=== PATIENT | female | born 1965 | race Two or more races ===

== ENCOUNTER → 2017-04-16 | Outpatient (CLI) | payer OTHER, SELFPAY ==
--- NOTE | 2017-04-16 13:40 | REP ---
ABDOMINAL SERIES: Supine and erect views of the abdomen demonstrate no free air and no compelling evidence for small bowel obstruction. No dilated small bowel loops are seen. There appear to be a few phleboliths in the pelvis. There are mild degenerative changes of the spine. An accompanying view of the chest demonstrates no acute infiltrate. Heart is normal in size. The mediastinal silhouette is unremarkable. IMPRESSION: Negative abdominal series. Signed by Antoni Balderas MD 04/16/2017 05:18 P
== END ==
LOC: M LRY 12:20
PROVIDERS: ATTEND Nurse Practitioner Family
DX: R10.84 Generalized abdominal pain (principal)

== ENCOUNTER → 2017-04-16 | Outpatient (REF) | payer OTHER, SELFPAY | LOC: M SFHCLERA 11:48 | PROVIDERS: ATTEND Nurse Practitioner Family | DX: R10.84 Generalized abdominal pain (principal) ==

== ENCOUNTER → 2022-06-04 | Outpatient (CLI) | payer MEDICAID, OTHER | LOC: M WHC 11:02 | PROVIDERS: ATTEND Nurse Practitioner Family | DX: Z12.31 Encounter for screening mammogram for malignant neoplasm of breast (principal) ==

== ENCOUNTER → 2022-06-10 | Outpatient (REF) | payer OTHER, MEDICAID ==
[2022-06-10 14:00] LABS: BASO % 0.8 % (0.0-1.0); EOS # 0.1 10^3/uL (0.0-0.5); EOS % 1.2 % (0.0-3.0); HEMATOCRIT 41.4 % (36.0-47.0); HEMOGLOBIN 13.5 g/dl (12.0-15.5); LYMPH # 1.7 10^3/uL (1.5-5.0); LYMPH % 35.3 % (24.0-44.0); MEAN CORPUSCULAR HEMOGLOBIN 30.7 pg (27.0-33.0); MEAN CORPUSCULAR HGB CONC 32.6 g/dl (32.0-36.5); MEAN CORPUSCULAR VOLUME 94.1 fl (80.0-96.0); MONO # 0.4 10^3/uL (0.0-0.8); MONO % 8.1 % (2.0-8.0); NEUTROPHILS # 2.7 10^3/uL (1.5-8.5); NEUTROPHILS % 54.4 % (36.0-66.0); PLATELET COUNT, AUTOMATED 248 10^3/uL (150-450); WHITE BLOOD COUNT 4.9 10^3/uL (4.0-10.0)
[2022-06-10 14:58] LABS: ALBUMIN 3.9 G/DL (3.2-5.2); ALT/SGPT 84 U/L (7.0-40); BILIRUBIN,TOTAL 0.3 MG/DL (0.3-1.2); BLOOD UREA NITROGEN 13 MG/DL (9-23); CALCIUM LEVEL 9.3 MG/DL (8.5-10.1); CARBON DIOXIDE LEVEL 27 MMOL/L (20-31); CHLORIDE LEVEL 101 MMOL/L (98-107); CHOLESTEROL LEVEL 254 MG/DL (<200); CHOLESTEROL RISK RATIO 3.58 (<5); CREATININE FOR GFR 0.87 MG/DL (0.55-1.30); FREE T4 1.22 NG/DL (0.89-1.76); GLOMERULAR FILTRATION RATE > 60.0 (>51); GLUCOSE, FASTING 94 MG/DL (60-100); HDL CHOLESTEROL 70.9 MG/DL (>40); HEPATITIS C VIRUS ABY INDEX 0.1 INDEX (<0.8); LDL CHOLESTEROL 163.1 MG/DL (<100); NON-HDL-C 183 MG/DL; POTASSIUM SERUM 4.2 MMOL/L (3.5-5.1); SODIUM LEVEL 135 MMOL/L (136-145); THYROID STIMULATING HORMONE 2.387 uIU/ML (0.55-4.78); TOTAL 25(OH) VITAMIN D 19.3 NG/ML (20.0-100.0); TOTAL PROTEIN 6.7 G/DL (5.7-8.2); TRIGLYCERIDES LEVEL 100 MG/DL (<150)
[2022-06-10 18:32] LABS: HEMOGLOBIN A1c 5.1 % (4.0-6.0)
== END ==
LOC: M LAB REF 12:51
PROVIDERS: ATTEND Nurse Practitioner Family
DX: E55.9 Vitamin D deficiency, unspecified (principal); Z11.59 Encounter for screening for other viral diseases; Z13.228 Encounter for screening for other metabolic disorders

== ENCOUNTER 2022-07-17 11:41 | Emergency (ER) | payer MEDICAID, OTHER ==
[~2022-07-17] VITALS: Ht 154.9 cm; Wt 31.7 kg
[2022-07-17 15:14] VITALS: BP 135/83
== END 2022-07-17 15:23 | disposition home or self-care (01) ==
LOC: M ED 11:41
DX: S93.601A Unspecified sprain of right foot, initial encounter (principal); Y99.0 Civilian activity done for income or pay; M72.2 Plantar fascial fibromatosis; F32.A Depression, unspecified; F41.9 Anxiety disorder, unspecified; I10 Essential (primary) hypertension; F43.10 Post-traumatic stress disorder, unspecified; Z91.410 Personal history of adult physical and sexual abuse

== ENCOUNTER → 2022-09-21 | Outpatient (REF) | payer OTHER, MEDICAID ==
[2022-09-21 12:58] LABS: ALBUMIN 4.2 G/DL (3.2-5.2); ALKALINE PHOSPHATASE 102 U/L (46-116); ALT/SGPT 65 U/L (7.0-40); AST/SGOT 35 U/L (<34); BILIRUBIN,TOTAL 0.4 MG/DL (0.3-1.2); BLOOD UREA NITROGEN 12 MG/DL (9-23); CALCIUM LEVEL 9.7 MG/DL (8.5-10.1); CARBON DIOXIDE LEVEL 28 MMOL/L (20-31); CHLORIDE LEVEL 99 MMOL/L (98-107); CHOLESTEROL LEVEL 273 MG/DL (<200); CHOLESTEROL RISK RATIO 3.54 (<5); CREATININE FOR GFR 0.79 MG/DL (0.55-1.30); GLOMERULAR FILTRATION RATE > 60.0 (>51); GLUCOSE, FASTING 83 MG/DL (60-100); HDL CHOLESTEROL 77.1 MG/DL (>40); LDL CHOLESTEROL 179.1 MG/DL (<100); NON-HDL-C 196 MG/DL; POTASSIUM SERUM 4.4 MMOL/L (3.5-5.1); SODIUM LEVEL 135 MMOL/L (136-145); TOTAL PROTEIN 7.1 G/DL (5.7-8.2); TRIGLYCERIDES LEVEL 84 MG/DL (<150)
== END ==
LOC: M LAB REF 12:07
PROVIDERS: ATTEND Nurse Practitioner Family
DX: R79.89 Other specified abnormal findings of blood chemistry (principal); R74.8 Abnormal levels of other serum enzymes

== ENCOUNTER → 2022-10-30 | Outpatient (REF) | payer OTHER, MEDICAID | LOC: M SFHCDERM 17:50 | PROVIDERS: ATTEND Nurse Practitioner Family | DX: D22.71 Melanocytic nevi of right lower limb, including hip (principal) ==

== ENCOUNTER 2022-11-26 12:09 | Emergency (ER) | payer OTHER, SELFPAY ==
[~2022-11-26] VITALS: Ht 157.5 cm; Wt 69.3 kg
[2022-11-26] MEDS ORDERED: ISOVUE-370 76% 100ML VIAL As Ordered ONE (12:25)
[2022-11-26 12:45] LABS: BASO % 0.3 % (0.0-1.0); EOS % 0.4 % (0.0-3.0); HEMATOCRIT 42.4 % (36.0-47.0); HEMOGLOBIN 14.2 g/dl (12.0-15.5); LYMPH # 2.1 10^3/uL (1.5-5.0); LYMPH % 26.6 % (24.0-44.0); MEAN CORPUSCULAR HEMOGLOBIN 30.9 pg (27.0-33.0); MEAN CORPUSCULAR HGB CONC 33.5 g/dl (32.0-36.5); MEAN CORPUSCULAR VOLUME 92.2 fl (80.0-96.0); MONO # 0.8 10^3/uL (0.0-0.8); NEUTROPHILS # 4.8 10^3/uL (1.5-8.5); NEUTROPHILS % 62.4 % (36.0-66.0); PLATELET COUNT, AUTOMATED 266 10^3/uL (150-450); WHITE BLOOD COUNT 7.7 10^3/uL (4.0-10.0)
[2022-11-26 13:00] LABS: INR 0.89; PROTHROMBIN TIME 12.2 SECONDS (12.5-14.5)
[2022-11-26 13:01] LABS: PARTIAL THROMBOPLASTIN TIME 27.3 SECONDS (24.8-34.2)
[2022-11-26] MEDS ORDERED: ATOR1TAB19 (13:15)
[2022-11-26] MEDS ORDERED: BUSP15TA47 (13:15)
[2022-11-26] MEDS ORDERED: VITA200032 (13:15)
[2022-11-26] MEDS ORDERED: BUPR1TAB52 (13:15)
[2022-11-26] MEDS ORDERED: ALPR0.25 (13:15)
[2022-11-26] MEDS ORDERED: FLUO40CA PO (13:15)
[2022-11-26] MEDS ORDERED: HYDR-3363 (13:15)
[2022-11-26] MEDS ORDERED: LISI20TA33 (13:15)
[2022-11-26 13:16] LABS: CK-MB VALUE MASS < 1.0 NG/ML (<3.6)
[2022-11-26 13:18] LABS: CPK CREATINE PHOSPHOKINASE 67 U/L (34-145); MB/CK RELATIVE INDEX 1.49 (< OR =4)
[2022-11-26 13:34] LABS: RSV AMPLIFICATION NEGATIVE (NEGATIVE)
[2022-11-26] MEDS ORDERED: LORazepam 2 MG/ML 1ML VIAL IV ONE (13:40)
[2022-11-26 14:09] LABS: CK-MB VALUE MASS < 1.0 NG/ML (<3.6); CPK CREATINE PHOSPHOKINASE 68 U/L (34-145); MB/CK RELATIVE INDEX 1.47 (< OR =4)
[2022-11-26 20:00] VITALS: BP 114/71
[2022-11-26 20:27] VITALS: O2SAT 97
== END 2022-11-26 20:44 | disposition home or self-care (01) ==
LOC: M ED 12:09
DX: R42 Dizziness and giddiness (principal); I10 Essential (primary) hypertension; E78.5 Hyperlipidemia, unspecified; F41.9 Anxiety disorder, unspecified; F32.9 Major depressive disorder, single episode, unspecified; F43.10 Post-traumatic stress disorder, unspecified; Z79.899 Other long term (current) drug therapy
CPT/HCPCS: 70450; 70496; 70498; 70544; 70551; 71045; 80047; 82550; 82553; 84484; 85025; 85610; 85730; 87631; 93005; 93041; 94760; 96374; 99285; J2060; Q9967

== ENCOUNTER → 2022-12-29 | Outpatient (REF) | payer MEDICAID, OTHER ==
[~2022-12-29] MED LIST: ALPR0.25; ATOR1TAB19; BUPR1TAB52; BUSP15TA47; FLUO40CA PO; HYDR-3363; LISI20TA33; VITA200032
== END ==
LOC: M LAB REF 08:24
PROVIDERS: ATTEND Surgery
DX: L90.5 Scar conditions and fibrosis of skin (principal)

== ENCOUNTER 2023-01-03 13:15 | Emergency (ER) | payer MEDICAID, OTHER ==
[~2023-01-03] VITALS: Ht 157.5 cm; Wt 70.3 kg
[2023-01-03 13:15] VITALS: TEMP 97.8
[2023-01-03 13:45] LABS: BASO % 0.6 % (0.0-1.0); EOS % 0.3 % (0.0-3.0); HEMATOCRIT 40.3 % (36.0-47.0); HEMOGLOBIN 13.4 g/dl (12.0-15.5); LYMPH # 1.3 10^3/uL (1.5-5.0); LYMPH % 18.1 % (24.0-44.0); MEAN CORPUSCULAR HEMOGLOBIN 30.7 pg (27.0-33.0); MEAN CORPUSCULAR HGB CONC 33.3 g/dl (32.0-36.5); MEAN CORPUSCULAR VOLUME 92.4 fl (80.0-96.0); MONO # 0.5 10^3/uL (0.0-0.8); MONO % 6.5 % (2.0-8.0); NEUTROPHILS # 5.4 10^3/uL (1.5-8.5); NEUTROPHILS % 74.2 % (36.0-66.0); PLATELET COUNT, AUTOMATED 246 10^3/uL (150-450); RED BLOOD COUNT 4.36 10^6/uL (4.00-5.40); WHITE BLOOD COUNT 7.2 10^3/uL (4.0-10.0)
[2023-01-03 14:11] LABS: ALKALINE PHOSPHATASE 110 U/L (46-116); ALT/SGPT 73 U/L (7.0-40); AST/SGOT 43 U/L (<34); BILIRUBIN,DIRECT 0.1 MG/DL (<0.4); BILIRUBIN,TOTAL 0.4 MG/DL (0.3-1.2); BLOOD UREA NITROGEN 7 MG/DL (9-23); CALCIUM LEVEL 9.6 MG/DL (8.5-10.1); CARBON DIOXIDE LEVEL 24 MMOL/L (20-31); CHLORIDE LEVEL 102 MMOL/L (98-107); CREATININE FOR GFR 0.76 MG/DL (0.55-1.30); GLOMERULAR FILTRATION RATE > 60.0 (>51); GLUCOSE, FASTING 147 MG/DL (60-100); POTASSIUM SERUM 3.9 MMOL/L (3.5-5.1); SODIUM LEVEL 135 MMOL/L (136-145); TOTAL PROTEIN 6.5 G/DL (5.7-8.2)
[2023-01-03 14:30] LABS: MAGNESIUM LEVEL 1.9 MG/DL (1.8-2.4)
[2023-01-03 14:42] LABS: APPEARANCE, URINE CLEAR (CLEAR); BACTERIA, URINE AUTO NEGATIVE (NEGATIVE); BILIRUBIN, URINE AUTO NEGATIVE (NEGATIVE); BLOOD, URINE BLOOD NEGATIVE (NEGATIVE); COLOR, URINE COLORLESS (YELLOW); GLUCOSE, URINE (UA) AUTO NEGATIVE (NEGATIVE); KETONE, URINE AUTO NEGATIVE (NEGATIVE); LEUKOCYTE ESTERASE, URINE AUTO TRACE (NEGATIVE); NITRITE, URINE AUTO NEGATIVE (NEGATIVE); PROTEIN, URINE AUTO NEGATIVE (NEGATIVE); RBC, URINE AUTO 0 /HPF (0-3); SPECIFIC GRAVITY URINE AUTO 1.002 (1.002-1.035); SQUAMOUS EPITHELIAL CELL UR AU 0 /HPF (0-6); UROBILINOGEN, URINE AUTO 0.2 mg/dL (0.0-2.0); WBC, URINE AUTO 1 /HPF (0-3)
[2023-01-03 15:08] LABS: AMPHETAMINES LEVEL URINE NEGATIVE (NEGATIVE); BARBITURATES URINE NEGATIVE (NEGATIVE); BENZODIAZEPINES URINE NEGATIVE (NEGATIVE); CANNABINOIDS URINE NEGATIVE (NEGATIVE); COCAINE METABOLITE URINE NEGATIVE (NEGATIVE); METHADONE URINE NEGATIVE (NEGATIVE); OPIATES URINE NEGATIVE (NEGATIVE); PHENCYCLIDINE URINE NEGATIVE (NEGATIVE)
[2023-01-03] MEDS ORDERED: methylPREDNISolone 125MG 2ML VIAL IV ONE (16:10)
[2023-01-03 16:15] VITALS: BP 146/71; O2SAT 98
[2023-01-03] MEDS ORDERED: MEDR4PAK PO (16:18)
[2023-01-03] MEDS ORDERED: VALI2TAB PO (16:18)
== END 2023-01-03 16:39 | disposition home or self-care (01) ==
LOC: M ED 13:15
DX: M54.12 Radiculopathy, cervical region (principal); F41.9 Anxiety disorder, unspecified; Z79.899 Other long term (current) drug therapy
CPT/HCPCS: 71045; 72125; 80053; 80307; 81001; 82248; 83605; 83735; 85025; 87486; 87581; 87633; 87798; 93005; 93041; 94760; 96374; 99285; J2930

== ENCOUNTER → 2023-01-11 | Outpatient (CLI) | payer MEDICAID ==
[~2023-01-11] MED LIST changes: +ALPR0.25 PO; +ATOR1TAB19 PO; +BUPR1TAB52 PO; +BUSP15TA47 PO; +DICL1PAT6 TD; +FLUO10CA18 PO; +FLUO20CA22 PO; +GABA-283 PO; +HYDR-3363 PO; +LISI20TA33 PO; +MECL1TAB31 PO; +MEDR4PAK PO; +MELO15TA28 PO; +VALI2TAB PO; +VITA200032 PO
[2023-01-11 11:58] LABS: BASO # 0.1 10^3/uL (0.0-0.2); BASO % 0.5 % (0.0-1.0); EOS # 0.1 10^3/uL (0.0-0.5); EOS % 0.9 % (0.0-3.0); HEMATOCRIT 43.1 % (36.0-47.0); HEMOGLOBIN 14.4 g/dl (12.0-15.5); LYMPH # 3.3 10^3/uL (1.5-5.0); LYMPH % 34.8 % (24.0-44.0); MEAN CORPUSCULAR HEMOGLOBIN 30.6 pg (27.0-33.0); MEAN CORPUSCULAR HGB CONC 33.4 g/dl (32.0-36.5); MEAN CORPUSCULAR VOLUME 91.7 fl (80.0-96.0); MONO % 10.4 % (2.0-8.0); NEUTROPHILS # 4.9 10^3/uL (1.5-8.5); PLATELET COUNT, AUTOMATED 314 10^3/uL (150-450); WHITE BLOOD COUNT 9.5 10^3/uL (4.0-10.0)
[2023-01-11 12:23] LABS: ERYTHROCYTE SEDIMENTATION RATE 9 mm/hr (0-30)
[2023-01-12 13:10] LABS: ANTINUCLEAR ANTIBODIES DIRECT Negative (Negative)
== END ==
LOC: M PLALAB 09:42
PROVIDERS: ATTEND Orthopaedic Surgery
DX: M43.12 Spondylolisthesis, cervical region (principal)

== ENCOUNTER 2023-01-12 14:35 | Observation (INO) | payer MEDICAID ==
[~2023-01-12] VITALS: Ht 157.5 cm; Wt 68.4 kg
[~2023-01-12 14:35] MED LIST changes: -ALPR0.25 PO; -ATOR1TAB19 PO; -BUPR1TAB52 PO; -BUSP15TA47 PO; -DICL1PAT6 TD; -FLUO10CA18 PO; -FLUO20CA22 PO; -GABA-283 PO; -HYDR-3363 PO; -LISI20TA33 PO; -MECL1TAB31 PO; -MELO15TA28 PO; -VITA200032 PO
[2023-01-12] MEDS ORDERED: GABA-283 PO (15:06)
[2023-01-12 15:17] LABS: BASO % 0.3 % (0.0-1.0); EOS # 0.1 10^3/uL (0.0-0.5); EOS % 0.5 % (0.0-3.0); HEMATOCRIT 39.1 % (36.0-47.0); HEMOGLOBIN 13.1 g/dl (12.0-15.5); LYMPH # 2.9 10^3/uL (1.5-5.0); LYMPH % 30.7 % (24.0-44.0); MEAN CORPUSCULAR HEMOGLOBIN 30.8 pg (27.0-33.0); MEAN CORPUSCULAR HGB CONC 33.5 g/dl (32.0-36.5); MONO # 0.8 10^3/uL (0.0-0.8); MONO % 8.3 % (2.0-8.0); NEUTROPHILS # 5.7 10^3/uL (1.5-8.5); NEUTROPHILS % 59.5 % (36.0-66.0); PLATELET COUNT, AUTOMATED 275 10^3/uL (150-450); RED BLOOD COUNT 4.25 10^6/uL (4.00-5.40); WHITE BLOOD COUNT 9.6 10^3/uL (4.0-10.0)
[2023-01-12 15:26] LABS: INR 0.91; PROTHROMBIN TIME 12.4 SECONDS (12.5-14.5)
[2023-01-12 15:27] LABS: PARTIAL THROMBOPLASTIN TIME 26.2 SECONDS (24.8-34.2)
[2023-01-12 15:45] LABS: BLOOD UREA NITROGEN 11 MG/DL (9-23); CALCIUM LEVEL 9.4 MG/DL (8.5-10.1); CARBON DIOXIDE LEVEL 23 MMOL/L (20-31); CHLORIDE LEVEL 97 MMOL/L (98-107); GLOMERULAR FILTRATION RATE > 60.0 (>51); GLUCOSE, FASTING 92 MG/DL (60-100); POTASSIUM SERUM 3.6 MMOL/L (3.5-5.1); SODIUM LEVEL 127 MMOL/L (136-145)
[2023-01-12] MEDS ORDERED: MELO15TA28 PO (15:45)
[2023-01-12] MEDS ORDERED: ALPRAZolam 0.5 MG TAB PO ONE (16:40)
[2023-01-12] MEDS ORDERED: ACETAMINOPHEN TAB 650MG DOSE (2X325MG) PO PRN (16:55)
[2023-01-12] MEDS ORDERED: LORazepam 2 MG/ML 1ML VIAL IV STA (17:29)
[2023-01-12] MEDS ORDERED: MED REC IN PROGRESS XX SCH (17:45)
[2023-01-12] MEDS ORDERED: PROHANCE 279.3MG/ML 15ML VIAL As Ordered ONE (18:17)
[2023-01-12 19:34] VITALS: BP 126/58; TEMP 98.1; O2SAT 97
[2023-01-12 20:01] VITALS: BP 126/58; TEMP 98.1; O2SAT 96
[2023-01-12 20:14] LABS: OSMOLALITY URINE 144 MOSM/KG (50-1400)
[2023-01-12 20:15] LABS: SODIUM,RANDOM URINE 14 MMOL/L
[2023-01-12 20:44] LABS: THYROID STIMULATING HORMONE 1.496 uIU/ML (0.55-4.78)
[2023-01-12 22:21] LABS: OSMOLALITY SERUM 267 MOSM/KG (275-295)
[2023-01-12 22:44] LABS: BLOOD UREA NITROGEN 14 MG/DL (9-23); CALCIUM LEVEL 8.5 MG/DL (8.5-10.1); CARBON DIOXIDE LEVEL 29 MMOL/L (20-31); CHLORIDE LEVEL 100 MMOL/L (98-107); CREATININE FOR GFR 0.88 MG/DL (0.55-1.30); GLOMERULAR FILTRATION RATE > 60.0 (>51); GLUCOSE, FASTING 100 MG/DL (60-100); POTASSIUM SERUM 4.3 MMOL/L (3.5-5.1); SODIUM LEVEL 131 MMOL/L (136-145)
[2023-01-12 22:56] LABS: OSMOLALITY SERUM 268 MOSM/KG (275-295)
[2023-01-12 23:52] VITALS: BP 102/60; TEMP 97.9; O2SAT 98
[2023-01-12 23:54] VITALS: BP 102/60; TEMP 97.9; O2SAT 98
[2023-01-13] VITALS (7 sets, daily range): BP systolic 104–126; BP diastolic 63–76; TEMP 97.8–98; O2SAT 97–100
[2023-01-13] MEDS ORDERED: HYDR-3363 PO (01:30)
[2023-01-13] MEDS ORDERED: LISI20TA33 PO (01:30)
[2023-01-13] MEDS ORDERED: BUSP15TA47 PO (01:30)
[2023-01-13] MEDS ORDERED: ATOR1TAB19 PO (01:30)
[2023-01-13] MEDS ORDERED: FLUO10CA18 PO (01:30)
[2023-01-13] MEDS ORDERED: VITA200032 PO (01:30)
[2023-01-13] MEDS ORDERED: FLUO20CA22 PO (01:30)
[2023-01-13] MEDS ORDERED: ALPR0.25 PO (01:30)
[2023-01-13] MEDS ORDERED: BUPR1TAB52 PO (01:30)
[2023-01-13] MEDS ORDERED: HOME MED LIST COMPLETE! XX SCH (01:35)
[2023-01-13 04:30] LABS: HEMOGLOBIN 12.1 g/dl (12.0-15.5); MEAN CORPUSCULAR HEMOGLOBIN 30.6 pg (27.0-33.0); MEAN CORPUSCULAR HGB CONC 33.6 g/dl (32.0-36.5); MEAN CORPUSCULAR VOLUME 91.1 fl (80.0-96.0); PLATELET COUNT, AUTOMATED 220 10^3/uL (150-450); RED BLOOD COUNT 3.95 10^6/uL (4.00-5.40); WHITE BLOOD COUNT 7.4 10^3/uL (4.0-10.0)
[2023-01-13 04:54] LABS: BLOOD UREA NITROGEN 13 MG/DL (9-23); CALCIUM LEVEL 9.3 MG/DL (8.5-10.1); CARBON DIOXIDE LEVEL 26 MMOL/L (20-31); CHLORIDE LEVEL 103 MMOL/L (98-107); CREATININE FOR GFR 0.84 MG/DL (0.55-1.30); GLOMERULAR FILTRATION RATE > 60.0 (>51); GLUCOSE, FASTING 81 MG/DL (60-100); POTASSIUM SERUM 4.3 MMOL/L (3.5-5.1); SODIUM LEVEL 132 MMOL/L (136-145)
[2023-01-13] MEDS ORDERED: ALPRAZolam 0.25 MG TAB PO PRN (07:15)
[2023-01-13] MEDS ORDERED: MECL1TAB31 PO (07:58)
[2023-01-13] MEDS ORDERED: DICLOFENAC EPOLAMINE 1.3% PATCH TOP SCH (08:00)
[2023-01-13] MEDS ORDERED: MECLIZINE 25 MG TABLET PO PRN (08:00)
[2023-01-13] MEDS ORDERED: DICL1PAT6 TD (08:02)
[2023-01-13] MEDS ORDERED: FLUoxetine 10 MG CAP PO SCH (09:00)
[2023-01-13] MEDS ORDERED: busPIRone 5 MG TAB PO SCH (09:00)
[2023-01-13] MEDS ORDERED: FLUoxetine 20MG CAP PO SCH (09:00)
[2023-01-13] MEDS ORDERED: buPROPion (WELLBUTRIN SR) 100 MG SR TAB PO SCH (09:00)
[2023-01-13] MEDS ORDERED: ATORVASTATIN 10 MG TAB PO SCH (21:00)
== END 2023-01-13 10:07 | disposition home or self-care (01) ==
LOC: M ED 14:35 → EDBD 14:35 → M ED INP 16:51 → M ICU 19:26
PROVIDERS: ADMIT General Practice; ATTEND General Practice
DX: H81.10 Benign paroxysmal vertigo, unspecified ear (principal); I10 Essential (primary) hypertension; R53.1 Weakness; R20.2 Paresthesia of skin; E87.1 Hypo-osmolality and hyponatremia; M50.322 Other cervical disc degeneration at C5-C6 level; M50.323 Other cervical disc degeneration at C6-C7 level; M47.812 Spondylosis without myelopathy or radiculopathy, cervical region; F43.10 Post-traumatic stress disorder, unspecified; F41.9 Anxiety disorder, unspecified; F32.A Depression, unspecified; E78.00 Pure hypercholesterolemia, unspecified; R26.81 Unsteadiness on feet; Z79.899 Other long term (current) drug therapy
CPT/HCPCS: 36415; 70450; 70544; 70553; 71045; 72141; 80048; 83930; 83935; 84300; 84443; 85025; 85027; 85610; 85730; 87635; 93005; 93041; 93880; 94760; 96374; 97161; 97530; 99285; A9576; J2060

== ENCOUNTER → 2023-01-29 | Outpatient (REF) | payer MEDICAID, OTHER ==
[~2023-01-29] MED LIST changes: +ALPR0.25 PO; +ATOR1TAB19 PO; +BUPR1TAB52 PO; +BUSP15TA47 PO; +DICL1PAT6 TD; +FLUO10CA18 PO; +FLUO20CA22 PO; +GABA-283 PO; +HYDR-3363 PO; +LISI20TA33 PO; +MECL1TAB31 PO; +MELO15TA28 PO; +VITA200032 PO
[2023-01-29 12:08] LABS: ALBUMIN 3.6 G/DL (3.2-5.2); ALKALINE PHOSPHATASE 100 U/L (46-116); ALT/SGPT 72 U/L (7.0-40); AST/SGOT 43 U/L (<34); BILIRUBIN,TOTAL 0.4 MG/DL (0.3-1.2); BLOOD UREA NITROGEN 14 MG/DL (9-23); CALCIUM LEVEL 9.3 MG/DL (8.5-10.1); CARBON DIOXIDE LEVEL 29 MMOL/L (20-31); CHLORIDE LEVEL 99 MMOL/L (98-107); CHOLESTEROL LEVEL 174 MG/DL (<200); CHOLESTEROL RISK RATIO 2.44 (<5); CREATININE FOR GFR 0.86 MG/DL (0.55-1.30); GLOMERULAR FILTRATION RATE > 60.0 (>51); GLUCOSE, FASTING 79 MG/DL (60-100); HDL CHOLESTEROL 71.3 MG/DL (>40); LDL CHOLESTEROL 90.5 MG/DL (<100); NON-HDL-C 102.7 MG/DL; POTASSIUM SERUM 4.6 MMOL/L (3.5-5.1); SODIUM LEVEL 133 MMOL/L (136-145); TOTAL PROTEIN 6.2 G/DL (5.7-8.2); TRIGLYCERIDES LEVEL 61 MG/DL (<150)
== END ==
LOC: M LAB REF 11:16
PROVIDERS: ATTEND Nurse Practitioner Family
DX: E78.5 Hyperlipidemia, unspecified (principal); R74.8 Abnormal levels of other serum enzymes

== ENCOUNTER 2023-03-01 10:55 | Day surgery (SDC) | payer OTHER ==
[~2023-03-01] VITALS: Ht 157.5 cm; Wt 69.8 kg
[~2023-03-01 10:55] MED LIST changes: +GABA-1171 PO; -GABA-283 PO; +GABA-284 PO; +NS 1,000 ML IV ONE; +propofoL 200 MG/20 ML VIAL As Ordered ONE
[2023-03-01 14:03] VITALS: TEMP 97.2
[2023-03-01 14:23] VITALS: BP 139/82; O2SAT 96
== END 2023-03-01 14:30 | disposition home or self-care (01) ==
LOC: M OPP 10:55
PROVIDERS: ATTEND Internal Medicine Gastroenterology
DX: Z12.11 Encounter for screening for malignant neoplasm of colon (principal); Z80.0 Family history of malignant neoplasm of digestive organs; K64.0 First degree hemorrhoids; Z79.02 Long term (current) use of antithrombotics/antiplatelets; Z79.891 Long term (current) use of opiate analgesic; Z79.899 Other long term (current) drug therapy

== ENCOUNTER → 2023-03-12 | Outpatient (CLI) | payer OTHER ==
[~2023-03-12] MED LIST changes: -NS 1,000 ML IV ONE; -propofoL 200 MG/20 ML VIAL As Ordered ONE
== END ==
LOC: M RAD 08:05
PROVIDERS: ATTEND Nurse Practitioner Family
DX: R74.8 Abnormal levels of other serum enzymes (principal)

== ENCOUNTER → 2023-04-27 | Outpatient (REF) | payer OTHER ==
[~2023-04-27] MED LIST changes: +MECL-209 PO; -MECL1TAB31 PO
[2023-04-27 12:56] LABS: ALBUMIN 3.9 G/DL (3.2-5.2); ALKALINE PHOSPHATASE 94 U/L (46-116); ALT/SGPT 41 U/L (7.0-40); AST/SGOT 24 U/L (<34); BILIRUBIN,TOTAL 0.4 MG/DL (0.3-1.2); BLOOD UREA NITROGEN 14 MG/DL (9-23); CALCIUM LEVEL 9.4 MG/DL (8.5-10.1); CARBON DIOXIDE LEVEL 29 MMOL/L (20-31); CHLORIDE LEVEL 103 MMOL/L (98-107); CHOLESTEROL LEVEL 167 MG/DL (<200); CHOLESTEROL RISK RATIO 2.09 (<5); CREATININE FOR GFR 0.91 MG/DL (0.55-1.30); GLOMERULAR FILTRATION RATE > 60.0 (>51); GLUCOSE, FASTING 80 MG/DL (60-100); HDL CHOLESTEROL 79.7 MG/DL (>40); LDL CHOLESTEROL 75.5 MG/DL (<100); NON-HDL-C 87.3 MG/DL; POTASSIUM SERUM 4.9 MMOL/L (3.5-5.1); SODIUM LEVEL 138 MMOL/L (136-145); TOTAL PROTEIN 6.4 G/DL (5.7-8.2); TRIGLYCERIDES LEVEL 59 MG/DL (<150)
== END ==
LOC: M LAB REF 11:50
PROVIDERS: ATTEND Nurse Practitioner Family
DX: R74.8 Abnormal levels of other serum enzymes (principal); E78.5 Hyperlipidemia, unspecified

== ENCOUNTER → 2023-07-26 | Outpatient (CLI) | payer OTHER | LOC: M WHC 10:10 | PROVIDERS: ATTEND Nurse Practitioner Family | DX: Z12.31 Encounter for screening mammogram for malignant neoplasm of breast (principal) ==

== ENCOUNTER 2024-05-10 07:53 | Emergency (ER) | payer OTHER ==
[~2024-05-10] VITALS: Ht 157.5 cm; Wt 75.8 kg
[~2024-05-10 07:53] MED LIST changes: +FLUO-290 PO; +FLUO-365 PO; -FLUO10CA18 PO; -FLUO20CA22 PO
[2024-05-10] MEDS ORDERED: AMOX875T2 PO (11:50)
[2024-05-10] MEDS: KETOROLAC 60MG 2ML VIAL IM ONE (11:54)
[2024-05-10 12:20] VITALS: BP 153/78; TEMP 98.7; O2SAT 96
== END 2024-05-10 12:21 | disposition home or self-care (01) ==
LOC: M ED 07:53
DX: J01.90 Acute sinusitis, unspecified (principal); B34.1 Enterovirus infection, unspecified; I10 Essential (primary) hypertension; E78.5 Hyperlipidemia, unspecified; Z79.1 Long term (current) use of non-steroidal anti-inflammatories (NSAID); Z79.2 Long term (current) use of antibiotics; Z79.899 Other long term (current) drug therapy
CPT/HCPCS: 71046; 87486; 87581; 87633; 87798; 96372; 99283; J1885

== ENCOUNTER → 2024-09-27 | Outpatient (REF) | payer OTHER ==
[~2024-09-27] MED LIST changes: +AMOX875T2 PO
[2024-09-27 18:18] LABS: BASO % 0.4 % (0.0-1.0); EOS # 0.1 10^3/uL (0.0-0.5); EOS % 1.1 % (0.0-3.0); HEMATOCRIT 40.7 % (36.0-47.0); HEMOGLOBIN 13.3 g/dl (12.0-15.5); LYMPH # 2.8 10^3/uL (1.5-5.0); LYMPH % 38.2 % (24.0-44.0); MEAN CORPUSCULAR HEMOGLOBIN 30.1 pg (27.0-33.0); MEAN CORPUSCULAR HGB CONC 32.7 g/dl (32.0-36.5); MEAN CORPUSCULAR VOLUME 92.1 fl (80.0-96.0); MONO # 0.6 10^3/uL (0.0-0.8); MONO % 8.6 % (2.0-8.0); NEUTROPHILS # 3.8 10^3/uL (1.5-8.5); NEUTROPHILS % 51.4 % (36.0-66.0); PLATELET COUNT, AUTOMATED 281 10^3/uL (150-450); RED BLOOD COUNT 4.42 10^6/uL (4.00-5.40); WHITE BLOOD COUNT 7.4 10^3/uL (4.0-10.0)
[2024-09-27 18:31] LABS: HEMOGLOBIN A1c 5.4 % (4.0-6.0)
[2024-09-27 18:38] LABS: ALBUMIN 4.1 G/DL (3.2-5.2); ALKALINE PHOSPHATASE 104 U/L (35-104); ALT/SGPT 34 U/L (7.0-40); AST/SGOT 26 U/L (<34); BILIRUBIN,TOTAL 0.3 MG/DL (0.3-1.2); BLOOD UREA NITROGEN 15 MG/DL (9-23); CALCIUM LEVEL 9.4 MG/DL (8.3-10.6); CARBON DIOXIDE LEVEL 28 MMOL/L (20-31); CHLORIDE LEVEL 100 MMOL/L (98-107); CHOLESTEROL LEVEL 195 MG/DL (<200); CHOLESTEROL RISK RATIO 2.53 (<5); CREATININE FOR GFR 0.87 MG/DL (0.55-1.30); GLOMERULAR FILTRATION RATE > 60.0 (>45); GLUCOSE, FASTING 85 MG/DL (74-106); HDL CHOLESTEROL 76.8 MG/DL (>40); LDL CHOLESTEROL 95.4 MG/DL (<100); NON-HDL-C 118.2 MG/DL; POTASSIUM SERUM 4.9 MMOL/L (3.5-5.1); SODIUM LEVEL 134 MMOL/L (136-145); TOTAL PROTEIN 7.1 G/DL (5.7-8.2); TRIGLYCERIDES LEVEL 114 MG/DL (<150)
[2024-09-27 18:40] LABS: THYROID STIMULATING HORMONE 2.006 uIU/ML (0.55-4.78)
[2024-09-27 18:41] LABS: TOTAL 25(OH) VITAMIN D 49.7 NG/ML (20.0-100.0)
== END ==
LOC: M LAB REF 17:30
PROVIDERS: ATTEND Nurse Practitioner Family
DX: E66.3 Overweight (principal); E55.9 Vitamin D deficiency, unspecified

== ENCOUNTER 2024-10-25 08:10 | Emergency (ER) | payer OTHER ==
[~2024-10-25] VITALS: Ht 157.5 cm; Wt 77.0 kg
[2024-10-25 09:26] LABS: KETONE, URINE AUTO RFX NEGATIVE (NEGATIVE); MUCUS, URINE RFX SMALL (NEGATIVE); NITRITE, URINE AUTO RFX NEGATIVE (NEGATIVE); RBC, URINE AUTO RFX 2 /HPF (0-3); SQUAM EPITHELIAL CELL UR AURFX 0 /HPF (0-6)
[2024-10-25 09:27] LABS: LEUKOCYTE ESTERASE UR AUTO RFX 3+ (NEGATIVE); WBC, URINE AUTO RFX 15 /HPF (0-3)
[2024-10-25] MEDS ORDERED: NITR100C3 PO (09:54)
[2024-10-25 10:10] VITALS: BP 135/60; TEMP 98.1; O2SAT 97
== END 2024-10-25 10:11 | disposition home or self-care (01) ==
LOC: M ED 08:10
DX: N30.00 Acute cystitis without hematuria (principal); E78.5 Hyperlipidemia, unspecified; K21.9 Gastro-esophageal reflux disease without esophagitis; I10 Essential (primary) hypertension; F41.9 Anxiety disorder, unspecified; Z79.2 Long term (current) use of antibiotics; Z79.899 Other long term (current) drug therapy

== ENCOUNTER → 2025-02-14 | Outpatient (REF) | payer OTHER ==
[~2025-02-14] MED LIST changes: +BUPR-670; +BUPR-670 PO; -BUPR1TAB52; -BUPR1TAB52 PO; +NITR100C3 PO
== END ==
LOC: M LAB REF 16:19
PROVIDERS: ATTEND Pediatrics
DX: R30.0 Dysuria (principal)

== ENCOUNTER → 2025-03-06 | Outpatient (REF) | payer OTHER ==
[2025-03-06 13:49] LABS: APPEARANCE, URINE HAZY (CLEAR); BACTERIA, URINE AUTO 1+ (NEGATIVE); BILIRUBIN, URINE AUTO NEGATIVE (NEGATIVE); BLOOD, URINE BLOOD NEGATIVE (NEGATIVE); GLUCOSE, URINE (UA) AUTO NEGATIVE (NEGATIVE); KETONE, URINE AUTO NEGATIVE (NEGATIVE); LEUKOCYTE ESTERASE, URINE AUTO 3+ (NEGATIVE); MUCUS, URINE SMALL (NEGATIVE); NITRITE, URINE AUTO NEGATIVE (NEGATIVE); PROTEIN, URINE AUTO NEGATIVE (NEGATIVE); RBC, URINE AUTO 1 /HPF (0-3); SPECIFIC GRAVITY URINE AUTO 1.015 (1.002-1.035); SQUAMOUS EPITHELIAL CELL UR AU 4 /HPF (0-6); UROBILINOGEN, URINE AUTO 0.2 mg/dL (0.0-2.0); WBC, URINE AUTO 7 /HPF (0-3); YEAST LIKE CELL URINE AUTO SMALL
== END ==
LOC: M LAB REF 12:06
PROVIDERS: ATTEND Physician Assistant Medical
DX: N39.0 Urinary tract infection, site not specified (principal)

== ENCOUNTER → 2025-03-09 | Outpatient (REF) | payer OTHER | LOC: M LAB REF 16:14 | PROVIDERS: ATTEND Nurse Practitioner Family | DX: R30.0 Dysuria (principal) ==

== ENCOUNTER → 2025-06-20 | Outpatient (CLI) | payer OTHER | LOC: M EKG 13:50 | PROVIDERS: ATTEND Internal Medicine Cardiovascular Disease | DX: R00.2 Palpitations (principal) ==

== ENCOUNTER → 2025-06-21 | Outpatient (CLI) | payer OTHER | LOC: M EKG 14:26 | PROVIDERS: ATTEND Nurse Practitioner Family | DX: R00.2 Palpitations (principal); R94.31 Abnormal electrocardiogram [ECG] [EKG] ==